=== PATIENT | female | born 1960 | race Caucasian/White ===

== ENCOUNTER 2023-11-04 13:37 | Emergency (ER) | payer BC, OTHER ==
[2023-11-04 13:45] VITALS: BP 130/77; PULSE 82; RESP 16; TEMP 97.8; BMI 27.3
== END 2023-11-04 16:25 | disposition home or self-care (01) ==
LOC: FER 13:37
DX: S01.21XA Laceration without foreign body of nose, initial encounter (principal); S01.511A Laceration without foreign body of lip, initial encounter; S00.81XA Abrasion of other part of head, initial encounter; W01.0XXA Fall on same level from slipping, tripping and stumbling without subsequent striking against object, initial encounter
CPT/HCPCS: 70450-TC; 70486-TC; 99284-25